=== PATIENT | male | born 1965 | race Caucasian/White ===

== ENCOUNTER → 2019-06-10 | Outpatient (CLI) | payer BC | END | disposition home or self-care (01) | LOC: CVU 15:54 | PROVIDERS: ATTEND Internal Medicine Cardiovascular Disease | DX: I35.1 Nonrheumatic aortic (valve) insufficiency (principal); I51.9 Heart disease, unspecified | CPT/HCPCS: 93306 ==

== ENCOUNTER → 2019-06-29 | Outpatient (CLI) | payer BC | END | disposition home or self-care (01) | LOC: CVU 15:52 | PROVIDERS: ATTEND Internal Medicine Cardiovascular Disease | DX: R42 Dizziness and giddiness (principal) | CPT/HCPCS: 93880 ==